=== PATIENT | female | born 2000 | race Caucasian/White ===

== ENCOUNTER 2020-01-01 08:38 | Inpatient (IN) | payer MEDICAID ==
[2020-01-01] MEDS ORDERED: Ampicillin 2 GM in Sodium Chloride 0.9% 100 ML IV ONE (09:02)
[2020-01-01] MEDS ORDERED: Acetaminophen 325 MG Tab PO PRN (09:02)
[2020-01-01] MEDS ORDERED: Nalbuphine 10 MG/ML Syringe IVPUSH PRN (09:02)
[2020-01-01] MEDS ORDERED: Sodium Chloride 0.9% 10 ML Syringe FLUSH PRN (09:02)
[2020-01-01] MEDS: Lactated Ringers 1,000 ML IV SCH ×3 (09:15→11:58)
[2020-01-01] MEDS ORDERED: Oxytocin/Lactated Ringers 10 UNIT/1,000 ML BAG IV SCH ×2 (09:15→12:48)
[2020-01-01] MEDS ORDERED: fentaNYL 100 MCG/2 ML SDV ONE (09:20)
[2020-01-01] MEDS ORDERED: ePHEDrine 50 MG/ML SDV IVPUSH PRN (09:27)
[2020-01-01] MEDS ORDERED: Bupivacaine/fentaNYL/NS 100 ML Bag EPIDUR PRN (09:27)
[2020-01-01] MEDS ORDERED: fentaNYL 100 MCG/2 ML SDV EPIDUR PRN (09:27)
[2020-01-01] MEDS ORDERED: diphenhydrAMINE 50 MG/ML SDV IVPUSH PRN (09:27)
--- NOTE | 2020-01-01 09:50 | PCM.PREANE ---
Preanesthetic Assessment - Procedure Proposed Procedure: elizabeth - Anesthesia/Transfusion/Family Hx Anesthesia History: No Prior Anesthesia Family History of Anesthesia Reaction: No Transfusion History: No Prior Transfusion(s) - Review of Systems General: No Symptoms Pulmonary: No Symptoms Cardiovascular: No Symptoms Gastrointestinal: No Symptoms Neurological: No Symptoms Other: Reports: None - Physical Assessment Vital Signs: 98.3 130/91 99% 98.3 77 Height: 5 ft 7 in Weight: 83.007 kg ASA Class: 2 Mental Status: Alert & Oriented x3 Airway Class: Mallampati = 1 Dentition: Reports: Normal Dentition Thyro-Mental Finger Breadths: 3 Mouth Opening Finger Breadths: 3 ROM/Head Extension: Full Lungs: Clear to Auscultation, Normal Respiratory Effort Cardiovascular: Regular Rate, Regular Rhythm - Lab Values: Laboratory Last Values WBC 12.34 K/mm3 (3.98-10.04) H 01/01/20 09:14 RBC 4.13 M/mm3 (3.98-5.22) 01/01/20 09:14 Hgb 14.4 gm/dl (11.2-15.7) 01/01/20 09:14 Hct 41.9 % (34.1-44.9) 01/01/20 09:14 MCV 101.5 fl (79.4-94.8) H 01/01/20 09:14 MCH 34.9 pg (25.6-32.2) H 01/01/20 09:14 MCHC 34.4 g/dl (32.2-35.5) 01/01/20 09:14 RDW Std Deviation 44.6 fL (36.4-46.3) 01/01/20 09:14 Plt Count 248 K/mm3 (182-369) 01/01/20 09:14 MPV 9.7 fl (9.4-12.3) 01/01/20 09:14 Neut % (Auto) 70.0 % (34.0-71.1) 01/01/20 09:14 Lymph % (Auto) 19.3 % (19.3-51.7) 01/01/20 09:14 [place] % (Auto) 8.8 % (4.7-12.5) 01/01/20 09:14 Eos % (Auto) 1.1 (0.7-5.8) 01/01/20 09:14 Baso % (Auto) 0.2 % (0.1-1.2) 01/01/20 09:14 Neut # (Auto) 8.66 K/mm3 (1.56-6.13) H 01/01/20 09:14 Lymph # (Auto) 2.38 K/mm3 (1.18-3.74) 01/01/20 09:14 [place] # (Auto) 1.08 K/mm3 (0.24-0.36) H 01/01/20 09:14 Eos # (Auto) 0.13 K/mm3 (0.04-0.36) 01/01/20 09:14 Baso # (Auto) 0.02 K/mm3 (0.01-0.08) 01/01/20 09:14 Membrane Rupture Positive H 01/01/20 08:40 - Allergies Allergies/Adverse Reactions: Allergies Allergy/AdvReac Type Severity Reaction Status Date / Time latex Allergy Rash Verified 01/01/20 08:47 - Blood Blood Available: No - Acknowledgements Anesthesia Type Planned: Epidural Pt an Appropriate Candidate for the Planned Anesthesia: Yes Alternatives and Risks of Anesthesia Discussed w Pt/Guardian: Yes Pt/Guardian Understands and Agrees with Anesthesia Plan: Yes PreAnesthesia Questionnaire Cardiovascular History: Reports: None Respiratory History: Reports: Asthma Gastrointestinal History: Reports: GERD : 2 Para: 1 Musculoskeletal History: Reports: None Oncologic (Cancer) History: Reports: None - History Comment History Comment: vits. zantac - SUBSTANCE USE Smoking Status *Q: Former Smoker Tobacco Use Within Last Twelve Months: No Second Hand Smoke Exposure: No Days Per Week of Alcohol Use: 0 Recreational Drug Use History: No - CURRENT (IN HOUSE) MEDS Current Meds: Current Medications Acetaminophen (Tylenol) 650 mg PO Q6H PRN PRN Reason: Pain (Mild 1-3) and fever Diphenhydramine HCl (Benadryl) 25 mg IVPUSH Q6H PRN PRN Reason: pruritis Ephedrine Sulfate (Ephedrine Sulfate) 5 mg IVPUSH ASDIRECTED PRN PRN Reason: Hypotension Fentanyl (Sublimaze) 100 mcg EPIDUR Q3H PRN PRN Reason: Pain Fentanyl/Bupivacaine HCl (Fentanyl/Bupivacaine/Ns 2 Mcg-0.125% 100 Ml) 100 ml EPIDUR ASDIRECTED PRN PRN Reason: Pain Ampicillin Sodium 1 gm/ Sodium (Chloride) 100 mls @ 200 mls/hr IV Q4H WALE Lactated Ringer's (Ringers, Lactated) 1,000 mls @ 100 mls/hr IV ASDIRECTED WALE Oxytocin/Lactated Ringer's (Pitocin In Lr 10 Units/1,000 Ml) 10 unit in 1,000 mls @ 100 mls/hr IV .CONTINUOUS WALE Nalbuphine HCl (Nubain) 10 mg IVPUSH Q2H PRN PRN Reason: Pain Sodium Chloride (Saline Flush) 10 ml FLUSH ASDIRECTED PRN PRN Reason: Keep Vein Open Discontinued Medications Fentanyl (Sublimaze) Confirm Administered Dose 100 mcg .ROUTE .[facility] ONE Stop: 01/01/20 09:21 Ampicillin Sodium 2 gm/ Sodium (Chloride) 100 mls @ 200 mls/hr IV ONETIME ONE Stop: 01/01/20 09:31
--- NOTE | 2020-01-01 10:16 | PCM.LDHP ---
L&D History of Present Illness - General Date of Service: 01/01/20 Admit Problem/Dx: Patient Status Order with Admit Dx/Problem 01/01/20 09:02 Patient Status [ADT] Routine Admission Diagnosis/Problem Admission Diagnosis/Problem 39 weeks gestation of Source of Information: Patient History Limitations: Reports: No Limitations - History of Present Illness Introduction:: Jazlyn Crump is a 19-year-old -0-2-1 at 39 weeks 1 day (JAKE 01/07/2020) by an 11-week ultrasound who presents for evaluation of possible rupture membranes. She reports that at around 640 this morning she started to feel ongoing leaking of fluid vaginally. Shortly after this occurred she started to have contractions that were about every 2 to 2.5 minutes apart. She is uncertain of how long they are lasting. She reports that the fluid was clear but while she was on labor and delivery she did have some bloody discharge when she went to the bathroom. She denies any significant amount of bright red bleeding. She denies any other abnormal discharge. She reports good movement. Timing/Duration: Reports: sudden onset (around 6:40 AM), constant/continuous ( contractions every 2-2.5 minutes) Location, : Reports: Abdomen, Lower back, Pelvic Quality: Reports: Pressure, Throbbing Severity: Severe Associated Symptoms: Reports: vaginal bleeding, vaginal fluid, mild amount. Denies: vaginal discharge Present Illness Comments:: Jazlyn Crump is a 19-year-old -0-2-1 at 39 weeks 1 day (JAKE 01/07/2020) by an 11-week ultrasound who presents with contractions and suspected rupture membranes. Patient reports that she had routine care with a physician in [place] prior to moving to [place]. She started having care with Dr. Ferrari at 35 weeks gestational age. She denies any problems with this . She received flu and Tdap vaccine on 12/03/2019. She reports a history of drug use but none during this . 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 G1: SAB G2: SAB G3: 05/07/2016, , male infant, 37 weeks gestational age G4: Current labs Blood type: A+ Antibody screen: Negative First trimester hematocrit/hemoglobin: 38.7%/14.0 on 06/14/2019 Platelets: 272 on 06/14/2019 Rubella status: Immune Hepatitis B surface antigen: Negative RPR: Negative HIV: Negative Gonorrhea: Negative Chlamydia: Negative One hour glucose tolerance test: 85 Second trimester hemoglobin: 13.4 on 09/30/2019 Platelets: 259 on 09/30/2019 GBS status: Positive on swab on 12/17/2019 - Related Data Allergies/Adverse Reactions: Allergies Allergy/AdvReac Type Severity Reaction Status Date / Time latex Allergy Rash Verified 01/01/20 08:47 Past Medical History Cardiovascular History: Reports: None Respiratory History: Reports: Asthma Gastrointestinal History: Reports: GERD CUSTOMER MARKETING MANAGER History: Reports: : 4 Para: 1 Musculoskeletal History: Reports: None Oncologic (Cancer) History: Reports: None - History Comment History Comment: vits. zantac Social & Family History - Tobacco Use Smoking Status *Q: Former Smoker Second Hand Smoke Exposure: No - Tobacco Core Measures Tobacco Use/Smoking Within Last 30 Days: No Smokeless Tobacco Use in Last 30 Days: No - Alcohol Use Days Per Week of Alcohol Use: 0 - Recreational Drug Use Recreational Drug Use: No - Living Situation & Occupation Living situation: Reports: Single, with Family H&P Review of Systems - Review of Systems: Review Of Systems: See Below General: Denies: Fever, Chills, Malaise, Weakness, Fatigue HEENT: Denies: Headaches, Rhinitis, Post Nasal Drip, Sinus Congestion, Sore Throat, Visual Changes Pulmonary: Denies: Shortness of Breath, Wheezing, Pleuritic Chest Pain, Cough Cardiovascular: Denies: Chest Pain, Palpitations, Dyspnea on Exertion, Orthopnea Gastrointestinal: Reports: Constipation. Denies: Abdominal Pain, Diarrhea, Nausea, Vomiting Genitourinary: Denies: Dysuria, Frequency, Burning, Pain, Urgency Musculoskeletal: Reports: Back Pain (and hip pain) Skin: Denies: Rash, Lesions Psychiatric: Reports: Anxiety. Denies: Depression L&D Exam - Exam Exam: See Below - Vital Signs Weight: 83.007 kg - OB Specific Contraction Duration (sec): 45-60 Contraction Frequency (min): 2-4 Contraction Intensity: Strong Movement: Active Heart Tones: Present Heart Tones per Min: 130 (+15 x 15 accelerations, intermittent variable decelerations) Heart Rate (FHR) Variability: Moderate (6-25 bmp) Presentation: Vertex Estimated Weight: 6.5-7 pounds by Miguel - Gray Score Gray Score Cervix Position: Anterior Gray Score Consistency: Soft Gray Score Effacement: >80% (90%) Gray Score Dilation: > 5 cm (5 cm) Gray Score 's Station: -2 Gray Score Total: 11 - Exam General: Alert, Oriented HEENT: Conjunctiva Clear, EOMI Neck: Supple, Trachea Midline Lungs: Clear to Auscultation, Normal Respiratory Effort Cardiovascular: Regular Rate, Regular Rhythm GI/Abdominal Exam: Soft, Non-Tender, No Distention, Other (gravid). No: Guarding, Rigid, Rebound Genitourinary: Normal external exam Skin: Warm, Dry, Intact Psychiatric: Alert, Normal Affect, Normal Mood - Patient Data Lab Results Last 24 hrs: Laboratory Results - last 24 hr 01/01/20 01/01/20 Range/Units 08:40 09:14 WBC 12.34 H (3.98-10.04) K/mm3 RBC 4.13 (3.98-5.22) M/mm3 Hgb 14.4 (11.2-15.7) gm/dl Hct 41.9 (34.1-44.9) % MCV 101.5 H (79.4-94.8) fl MCH 34.9 H (25.6-32.2) pg MCHC 34.4 (32.2-35.5) g/dl RDW Std Deviation 44.6 (36.4-46.3) fL Plt Count 248 (182-369) K/mm3 MPV 9.7 (9.4-12.3) fl Neut % (Auto) 70.0 (34.0-71.1) % Lymph % (Auto) 19.3 (19.3-51.7) % [facility] % (Auto) 8.8 (4.7-12.5) % Eos % (Auto) 1.1 (0.7-5.8) Baso % (Auto) 0.2 (0.1-1.2) % Neut # (Auto) 8.66 H (1.56-6.13) K/mm3 Lymph # (Auto) 2.38 (1.18-3.74) K/mm3 [facility] # (Auto) 1.08 H (0.24-0.36) K/mm3 Eos # (Auto) 0.13 (0.04-0.36) K/mm3 Baso # (Auto) 0.02 (0.01-0.08) K/mm3 Membrane Rupture Positive H Result Diagrams: 01/01/20 09:14 - Problem List (1) 39 weeks gestation of SNOMED Code(s): 25140498 ICD Code: Z3A.39 - 39 WEEKS GESTATION OF Status: Acute Current Visit: Yes (2) GBS (group B Streptococcus carrier), +RV culture, currently SNOMED Code(s): 7660596214184, 719362149, 2380470345454 ICD Code: O99.820 - STREPTOCOCCUS B CARRIER STATE COMPLICATING Status: Acute Current Visit: Yes (3) Asthma SNOMED Code(s): 217448462 ICD Code: J45.909 - UNSPECIFIED ASTHMA, UNCOMPLICATED Status: Acute Current Visit: Yes (4) History of depression SNOMED Code(s): 905250750 ICD Code: Z86.59 - PERSONAL HISTORY OF OTHER MENTAL AND BEHAVIORAL DISORDERS Status: Acute Current Visit: Yes Problem List Initiated/Reviewed/Updated: Yes Orders Last 24hrs: Active Orders 24 hr Category Date Time Status Patient Status [ADT] Routine ADT 01/01/20 09:02 Active Activity as Tolerated [RC] PFP Care 01/01/20 09:02 Active Communication Order [RC] ASDIRECTED Care 01/01/20 09:02 Active Heart Tones [RC] ASDIRECTED Care 01/01/20 09:03 Active Non Stress Test [RC] PER UNIT ROUTINE Care 01/01/20 09:02 Active Notify Provider Vital Signs [RC] PRN Care 01/01/20 09:04 Active Notify Provider [RC] ASDIRECTED Care 01/01/20 09:27 Active Notify Provider [RC] PFP Care 01/01/20 09:02 Active Notify Provider [RC] PRN Care 01/01/20 09:02 Active Peripheral IV Care [RC] . DIRECTED Care 01/01/20 09:03 Active Pump Management, Intrathecal [RC] ASDIRECTED Care 01/01/20 09:04 Active Vital Signs [RC] PER UNIT ROUTINE Care 01/01/20 09:02 Active Regular Diet [DIET] Diet 01/01/20 Breakfast Active RAPID PLASMA REAGIN,RPR [CHEM] Routine Lab 01/01/20 09:14 Received Acetaminophen [Tylenol] Med 01/01/20 09:02 Active 650 mg PO Q6H PRN Ampicillin 1 gm Med 01/01/20 13:00 Active Sodium Chloride 0.9% [Normal Saline] 100 ml IV Q4H Bupivacaine/fentaNYL/NS [fentaNYL/Bupivacaine/NS 2 MCG- Med 01/01/20 09:27 Active 0.125% 100 ML] 100 ml EPIDUR ASDIRECTED PRN Lactated Ringers [Ringers, Lactated] 1,000 ml Med 01/01/20 09:15 Active IV ASDIRECTED Nalbuphine [Nubain] Med 01/01/20 09:02 Active 10 mg IVPUSH Q2H PRN Oxytocin/Lactated Ringers [Pitocin in LR 10 Units/1,000 Med 01/01/20 09:15 Active ML] 10 unit in 1,000 ml IV .CONTINUOUS Sodium Chloride 0.9% [Saline Flush] Med 01/01/20 09:02 Active 10 ml FLUSH ASDIRECTED PRN diphenhydrAMINE [Benadryl] Med 01/01/20 09:27 Active 25 mg IVPUSH Q6H PRN ePHEDrine [ePHEDrine sulfate] Med 01/01/20 09:27 Active 5 mg IVPUSH ASDIRECTED PRN fentaNYL [Sublimaze] Med 01/01/20 09:27 Active 100 mcg EPIDUR Q3H PRN Electronic Heart Tones Ext w TOCO [WOMSER] Oth 01/01/20 09:02 Ordered Routine Electronic Heart Tones Internal [WOMSER] Per Unit Oth 01/01/20 09:02 Ordered Routine Peripheral IV Insertion Adult [OM.PC] Routine Oth 01/01/20 09:02 Ordered Resuscitation Status Routine Resus Stat 01/01/20 09:02 Ordered Medication Orders Acetaminophen (Tylenol) 650 mg PO Q6H PRN PRN Reason: Pain (Mild 1-3) and fever Diphenhydramine HCl (Benadryl) 25 mg IVPUSH Q6H PRN PRN Reason: pruritis Ephedrine Sulfate (Ephedrine Sulfate) 5 mg IVPUSH ASDIRECTED PRN PRN Reason: Hypotension Fentanyl (Sublimaze) 100 mcg EPIDUR Q3H PRN PRN Reason: Pain Fentanyl/Bupivacaine HCl (Fentanyl/Bupivacaine/Ns 2 Mcg-0.125% 100 Ml) 100 ml EPIDUR ASDIRECTED PRN PRN Reason: Pain Ampicillin Sodium 1 gm/ Sodium (Chloride) 100 mls @ 200 mls/hr IV Q4H WALE Lactated Ringer's (Ringers, Lactated) 1,000 mls @ 100 mls/hr IV ASDIRECTED WALE Oxytocin/Lactated Ringer's (Pitocin In Lr 10 Units/1,000 Ml) 10 unit in 1,000 mls @ 100 mls/hr IV .CONTINUOUS WALE Nalbuphine HCl (Nubain) 10 mg IVPUSH Q2H PRN PRN Reason: Pain Sodium Chloride (Saline Flush) 10 ml FLUSH ASDIRECTED PRN PRN Reason: Keep Vein Open Assessment/Plan Comment:: Refer to observation for spontaneous rupture of membranes Start Pitocin for augmentation of labor if she has spacing out of her contractions Continuous monitoring Place IV and have Lactated Ringer's at 125 ml/hr May have small amounts of regular diet Activity as tolerated Epidural placed and providing good relief at this time Plans to breast-feed after delivery Start on ampicillin 2 g now and have 1 g every 4 hours after for GBS prophylaxis Anticipate vaginal delivery unless otherwise indicated Stuart Nelson MD 10:23 AM 01/01/2020
[2020-01-01] MEDS ORDERED: Benzocaine/Menthol 20%-0.5% Spray 56 GM Canister TOP PRN (12:48)
[2020-01-01] MEDS ORDERED: Hydrocortisone Acetate 25 MG Supp RECTAL PRN (12:48)
[2020-01-01] MEDS ORDERED: Magnesium Hydroxide 400 MG/5 ML Susp 30 ML Cup PO PRN (12:48)
--- NOTE | 2020-01-01 12:53 | PCM.DEL ---
L & D Note - General Info Date of Service: 01/01/20 Mother's Due Date: 01/07/20 - Delivery Note Labor: Spontaneous Delivery Outcome: Livebirth Infant Delivery Method: Spontaneous Vaginal Delivery-Single Presentation: Right Occiput Posterior (ROP) Nuchal Cord: Present (x2 and not reduced) Anesthesia Type: Epidural Amniotic Fluid Description: Clear Episiotomy Type: None Laceration: 1st Degree (bilateral labial lacerations, hemostatic and not repaired) Placenta: Intact, Spontaneous Cord: 3 Vessels Estimated Blood Loss: 250 Resuscitation Needed: No [place]: Bulb Syringe, Cathether, Stimulated, Warmed, [place] Used Provider: Stuart Nelson Score 1 min: 7 Score 5 min: 9 Second Stage Interventions: Reports: Pushing Effectively, Pushing, Stirrups/Leg Supports Delivery Comments (Free Text/Narrative):: Stage I: Jazlyn Crump was admitted for labor with spontaneous rupture of membranes. On admission her cervix was dilated to 5 cm. She was GBS positive and was started on ampicillin for GBS prophylaxis. She received 1 total dose prior to delivery. She was given an epidural for anesthesia. She was having regular contractions and progressed to complete and pushing. Stage II: On 01/01/2020 she had a normal vaginal delivery of a live female at 12:22. Apgars of 7 & 9. Weight of 2770 g (6 lbs 1.7 oz). Length of 18 inches. There was a nuchal cord x2 that was not reduced prior to delivery. was delivered in ROP position. The cord was doubly clamped and cut by myself. was placed on mother's abdomen. Stage III: She had a spontaneous delivery of an intact placenta in [place] presentation. Three vessel cord. She was given pitocin and fundal massage. She had bilateral labial lacerations that were hemostatic and not repaired. Mom and baby were stable to recovery. EBL of 250 mL. Stuart Nelson MD 12:50 PM 01/01/2020 - General Info Date of Service: 01/01/20 - Patient Data Vitals - Most Recent: Last Vital Signs Temp 36.8 C 01/01/20 09:02 Pulse 77 01/01/20 09:02 Resp 18 01/01/20 09:02 BP 130/91 H 01/01/20 09:02 Pulse Ox 99 01/01/20 09:02 Weight - Most Recent: 83.915 kg Lab Results Last 24 Hours: Laboratory Results - last 24 hr 01/01/20 01/01/20 Range/Units 08:40 09:14 WBC 12.34 H (3.98-10.04) K/mm3 RBC 4.13 (3.98-5.22) M/mm3 Hgb 14.4 (11.2-15.7) gm/dl Hct 41.9 (34.1-44.9) % MCV 101.5 H (79.4-94.8) fl MCH 34.9 H (25.6-32.2) pg MCHC 34.4 (32.2-35.5) g/dl RDW Std Deviation 44.6 (36.4-46.3) fL Plt Count 248 (182-369) K/mm3 MPV 9.7 (9.4-12.3) fl Neut % (Auto) 70.0 (34.0-71.1) % Lymph % (Auto) 19.3 (19.3-51.7) % [place] % (Auto) 8.8 (4.7-12.5) % Eos % (Auto) 1.1 (0.7-5.8) Baso % (Auto) 0.2 (0.1-1.2) % Neut # (Auto) 8.66 H (1.56-6.13) K/mm3 Lymph # (Auto) 2.38 (1.18-3.74) K/mm3 [place] # (Auto) 1.08 H (0.24-0.36) K/mm3 Eos # (Auto) 0.13 (0.04-0.36) K/mm3 Baso # (Auto) 0.02 (0.01-0.08) K/mm3 Membrane Rupture Positive H Med Orders - Current: Current Medications Acetaminophen (Tylenol) 650 mg PO Q6H PRN PRN Reason: mild pain or fever Benzocaine/Menthol (Dermoplast Pain Relief [place]) 0 gm TOP ASDIRECTED PRN PRN Reason: Perineal Comfort Measure Docusate Sodium (Colace) 100 mg PO BID PRN PRN Reason: Constipation Hydrocortisone Acetate (Anucort-Hc) 25 mg RECTAL BID PRN PRN Reason: Hemorrhoid pain Oxytocin/Lactated Ringer's (Pitocin In Lr 10 Units/1,000 Ml) 10 unit in 1,000 mls @ 100 mls/hr IV TITRATE WALE; Protocol Ibuprofen (Motrin) 600 mg PO Q6H PRN PRN Reason: Mild pain or fever Magnesium Hydroxide (Milk Of Magnesia) 30 ml PO BEDTIME PRN PRN Reason: Constipation Prenat Multivit/[place]/Iron/Folic Ac ( Plus Iron) 1 each PO DAILY ON LICENSE OF [facility] Rafaela Chung (Tucks) 1 pad TOP ASDIRECTED PRN PRN Reason: Perineal Comfort Measure Discontinued Medications Acetaminophen (Tylenol) 650 mg PO Q6H PRN PRN Reason: Pain (Mild 1-3) and fever Diphenhydramine HCl (Benadryl) 25 mg IVPUSH Q6H PRN PRN Reason: pruritis Ephedrine Sulfate (Ephedrine Sulfate) 5 mg IVPUSH ASDIRECTED PRN PRN Reason: Hypotension Fentanyl (Sublimaze) Confirm Administered Dose 100 mcg .ROUTE .[facility] ONE Stop: 01/01/20 09:21 Last Admin: 01/01/20 11:58 Dose: 100 mcg Fentanyl (Sublimaze) 100 mcg EPIDUR Q3H PRN PRN Reason: Pain Fentanyl/Bupivacaine HCl (Fentanyl/Bupivacaine/Ns 2 Mcg-0.125% 100 Ml) 100 ml EPIDUR ASDIRECTED PRN PRN Reason: Pain Last Admin: 01/01/20 09:45 Dose: 100 ml Ampicillin Sodium 2 gm/ Sodium (Chloride) 100 mls @ 200 mls/hr IV ONETIME ONE Stop: 01/01/20 09:31 Last Admin: 01/01/20 09:15 Dose: 200 mls/hr Ampicillin Sodium 1 gm/ Sodium (Chloride) 100 mls @ 200 mls/hr IV Q4H WALE Lactated Ringer's (Ringers, Lactated) 1,000 mls @ 100 mls/hr IV ASDIRECTED WALE Last Admin: 01/01/20 11:58 Dose: 999 mls/hr Oxytocin/Lactated Ringer's (Pitocin In Lr 10 Units/1,000 Ml) 10 unit in 1,000 mls @ 100 mls/hr IV .CONTINUOUS WALE Last Admin: 01/01/20 12:02 Dose: 100 mls/hr Nalbuphine HCl (Nubain) 10 mg IVPUSH Q2H PRN PRN Reason: Pain Sodium Chloride (Saline Flush) 10 ml FLUSH ASDIRECTED PRN PRN Reason: Keep Vein Open - Problem List & Annotations (1) 39 weeks gestation of SNOMED Code(s): 61156146 Code(s): Z3A.39 - 39 WEEKS GESTATION OF Status: Acute Current Visit: Yes (2) GBS (group B Streptococcus carrier), +RV culture, currently SNOMED Code(s): 2596663890440, 004219869, 5336910145822 Code(s): O99.820 - STREPTOCOCCUS B CARRIER STATE COMPLICATING Status: Acute Current Visit: Yes (3) Asthma SNOMED Code(s): 444766108 Code(s): J45.909 - UNSPECIFIED ASTHMA, UNCOMPLICATED Status: Acute Current Visit: Yes (4) History of depression SNOMED Code(s): 968820064 Code(s): Z86.59 - PERSONAL HISTORY OF OTHER MENTAL AND BEHAVIORAL DISORDERS Status: Acute Current Visit: Yes (5) Vaginal delivery SNOMED Code(s): 947508699 Code(s): O80 - ENCOUNTER FOR FULL-TERM UNCOMPLICATED DELIVERY Status: Acute Current Visit: Yes (6) Obstetric labial laceration, delivered, current hospitalization SNOMED Code(s): 383227561, 017496779, 410627467 Code(s): O70.0 - FIRST DEGREE PERINEAL LACERATION DURING DELIVERY Status: Acute Current Visit: Yes - Problem List Review Problem List Initiated/Reviewed/Updated: Yes - My Orders Last 24 Hours: My Active Orders 01/01/20 09:02 Resuscitation Status Routine 01/01/20 09:03 Heart Tones [RC] ASDIRECTED 01/01/20 09:14 RAPID PLASMA REAGIN,RPR [CHEM] Routine 01/01/20 12:48 Patient Status [ADT] Routine Activity as Tolerated [RC] PER UNIT ROUTINE May Shower [RC] ASDIRECTED Notify Provider Vital Signs [RC] ASDIRECTED Vital Signs [RC] ASDIRECTED Acetaminophen [Tylenol] 650 mg PO Q6H PRN Benzocaine/Menthol [Dermoplast Pain Relief [place]] See Dose Instructions TOP ASDIRECTED PRN Docusate Sodium [Colace] 100 mg PO BID PRN Hydrocortisone Acetate [Anucort-HC] 25 mg RECTAL BID PRN Ibuprofen [Motrin] 600 mg PO Q6H PRN Magnesium Hydroxide [Milk of Magnesia] 30 ml PO BEDTIME PRN Oxytocin/Lactated Ringers [Pitocin in LR 10 Units/1,000 ML] 10 unit in 1,000 ml IV TITRATE witch Nikolas [Tucks] 1 pad TOP ASDIRECTED PRN Assess Lochia [WOMSER] Per Unit Routine Assess Uterine Involution [WOMSER] Per Unit Routine Breast Pump [WOMSER] Per Unit Routine Heat Therapy [OM.PC] PRN Ice Therapy [OM.PC] Per Unit Routine Medication Administration Instruction [OM.PC] Routine Perineal Care [OM.PC] Per Unit Routine Peripheral IV Discontinue [OM.PC] Routine Sitz Bath [OM.PC] Per Unit Routine 01/01/20 Lunch Regular Diet [DIET] 01/02/20 09:00 Vit with Ca/FA/Iron [ Plus Iron] 1 each PO DAILY 01/02/20 12:48 Heat Therapy [OM.PC] PRN - Plan Plan:: Admit to inpatient following normal spontaneous vaginal delivery Continue Pitocin per unit protocol following delivery of placenta and lactated Ringer's until tolerating regular diet Regular diet Vitals per unit routine Ibuprofen and Tylenol for pain control Assist with breast-feeding as needed Continue to monitor lochia Anticipate discharge home on day #2 Stuart Nelson MD 12:50 PM 01/01/2020
[2020-01-01] MEDS ORDERED: Ampicillin 1 GM in Sodium Chloride 0.9% 100 ML IV SCH (13:00)
[2020-01-01] MEDS ORDERED: Bupivacaine 0.25% 10 ML SDV ONE (14:00)
[2020-01-01] MEDS: Witch Hazel Medicated Pads 40/Jar TOP PRN (14:42)
[2020-01-01] MEDS: Ibuprofen 600 MG Tab PO PRN (18:34)
[2020-01-01] MEDS: Acetaminophen 325 MG Tab PO PRN (21:12)
[2020-01-01] MEDS: Docusate Sodium 100 MG Cap PO PRN (21:14)
[2020-01-02] MEDS: Ibuprofen 600 MG Tab PO PRN ×3 (00:47→18:10)
[2020-01-02] MEDS ORDERED: Prenatal Multivitamin with Calcium/Folic Acid/Iron Tab PO SCH (09:00)
--- NOTE | 2020-01-02 09:46 | PCM.SN.2 ---
- Free Text/Narrative Note: Post Progress Note PPD #1 Subjective: Doing well overall. Ambulating without difficulty. Lochia minimal. Voiding without difficulty. Tolerating regular diet without nausea or vomiting. Pain overall controlled with oral medications. Breast-feeding with formula supplementation as needed with minimal difficulty. Objective: Vitals: Vital Signs - 24 hr 01/01/20 01/01/20 01/01/20 15:11 15:48 21:01 Temperature 37.4 C 37.6 C 37.0 C Pulse, 113 H 86 82 Peripheral Respiratory 16 16 Rate Blood Pressure 128/73 127/67 O2 Sat by Pulse 99 98 98 Oximetry 01/02/20 01/02/20 05:57 09:09 Temperature 36.6 C 37.0 C Pulse, 64 87 Peripheral Respiratory 15 15 Rate Blood Pressure 129/73 129/67 O2 Sat by Pulse 97 98 Oximetry Physical Exam General: Alert and oriented, no acute distress Lungs: Clear to auscultation bilaterally Heart: Regular rate and rhythm Abdomen: Soft, minimal appropriate tenderness, non-distended, fundus midline, nontender, and 1 fingerbreadth below the umbilicus Extremities: No edema ASSESSMENT: 19-year-old female -0-2-2 s/p normal vaginal delivery PPD #1, complicated by GBS positive and received 1 dose of ampicillin prior to delivery, asthma, late transfer of care and history of drug use prior to and depression PLAN: Doing well Breast-feeding with formula supplementation as needed with minimal difficulty. Assist as needed Lochia minimal. Continue to monitor for appropriate lochia. Continue routine care Anticipate discharge home tomorrow Stuart Nelson MD 9:45 AM 01/02/2020
[2020-01-02] MEDS: Witch Hazel Medicated Pads 40/Jar TOP PRN (19:36)
[2020-01-02] MEDS: Docusate Sodium 100 MG Cap PO PRN (19:36)
[2020-01-02] MEDS: Acetaminophen 325 MG Tab PO PRN (22:59)
[2020-01-03] MEDS: Ibuprofen 600 MG Tab PO PRN (07:19)
--- NOTE | 2020-01-03 08:50 | PCM.SN.2 ---
- Free Text/Narrative Note: Post Progress Note PPD #2 Subjective: Doing well overall. Ambulating without difficulty. Lochia minimal. Voiding without difficulty. Reports that she is passing flatus but is having some mild constipation. Took her Colace that was ordered last evening but has still not had a bowel movement. Tolerating regular diet without nausea or vomiting. Pain overall controlled with oral medications. Reports that the pain is improving this morning. Breast-feeding and pumping breastmilk with small amounts of formula supplementation as needed with minimal difficulty. Objective: Vitals: Vital Signs - 24 hr 01/02/20 01/02/20 01/02/20 09:09 15:46 19:38 Temperature 37.0 C 37.2 C 37.3 C Pulse, 87 78 78 Peripheral Respiratory 15 14 15 Rate Blood Pressure 129/67 119/88 130/73 O2 Sat by Pulse 98 97 97 Oximetry 01/03/20 02:26 Temperature 37.0 C Pulse, 71 Peripheral Respiratory 15 Rate Blood Pressure 111/87 O2 Sat by Pulse 97 Oximetry Physical Exam General: Alert and oriented, no acute distress Lungs: Clear to auscultation bilaterally Heart: Regular rate and rhythm Abdomen: Soft, minimal appropriate tenderness, non-distended, fundus midline, nontender, and 1 fingerbreadth below the umbilicus Extremities: No edema ASSESSMENT: 19-year-old female -0-2-2 s/p normal vaginal delivery PPD #2, complicated by GBS positive and received 1 dose of ampicillin prior to delivery, asthma, late transfer of care and history of drug use prior to and depression PLAN: Doing well Breast-feeding and pumping breastmilk with small amounts of formula supplementation as needed with minimal difficulty. Assist as needed Lochia minimal. Continue to monitor for appropriate lochia. Continue routine care Discharge home today Stuart Nelson MD 8:48 AM 01/03/2020
--- NOTE | 2020-01-03 08:53 | PCM.DCSUM1 ---
Discharge Summary - Hospital Course Free Text/Narrative:: - General Info Date of Service: 01/01/20 Mother's Due Date: 01/07/20 - Delivery Note Labor: Spontaneous Delivery Outcome: Livebirth Infant Delivery Method: Spontaneous Vaginal Delivery-Single Presentation: Right Occiput Posterior (ROP) Nuchal Cord: Present (x2 and not reduced) Anesthesia Type: Epidural Amniotic Fluid Description: Clear Episiotomy Type: None Laceration: 1st Degree (bilateral labial lacerations, hemostatic and not repaired) Placenta: Intact, Spontaneous Cord: 3 Vessels Estimated Blood Loss: 250 Resuscitation Needed: No Mcroberts: Bulb Syringe, Cathether, Stimulated, Warmed, Milton Used Provider: Stuart Nelson Score 1 min: 7 Score 5 min: 9 Second Stage Interventions: Reports: Pushing Effectively, Pushing, Stirrups/Leg Supports Delivery Comments (Free Text/Narrative):: Stage I: Jazlyn Crump was admitted for labor with spontaneous rupture of membranes. On admission her cervix was dilated to 5 cm. She was GBS positive and was started on ampicillin for GBS prophylaxis. She received 1 total dose prior to delivery. She was given an epidural for anesthesia. She was having regular contractions and progressed to complete and pushing. Stage II: On 01/01/2020 she had a normal vaginal delivery of a live female infant at 12:22. Apgars of 7 & 9. Weight of 2770 g (6 lbs 1.7 oz). Length of 18 inches. There was a nuchal cord x2 that was not reduced prior to delivery. was delivered in ROP position. The cord was doubly clamped and cut by myself. was placed on mother's abdomen. Stage III: She had a spontaneous delivery of an intact placenta in Wood presentation. Three vessel cord. She was given pitocin and fundal massage. She had bilateral labial lacerations that were hemostatic and not repaired. Mom and baby were stable to recovery. EBL of 250 mL. HPI Initial Comments: - General Info Date of Service: 01/01/20 Mother's Due Date: 01/07/20 - Delivery Note Labor: Spontaneous Delivery Outcome: Livebirth Delivery Method: Spontaneous Vaginal Delivery-Single Presentation: Right Occiput Posterior (ROP) Nuchal Cord: Present (x2 and not reduced) Anesthesia Type: Epidural Amniotic Fluid Description: Clear Episiotomy Type: None Laceration: 1st Degree (bilateral labial lacerations, hemostatic and not repaired) Placenta: Intact, Spontaneous Cord: 3 Vessels Estimated Blood Loss: 250 Resuscitation Needed: No : Bulb Syringe, Cathether, Stimulated, Warmed, Milton Used Provider: Stuart Nelson Score 1 min: 7 Score 5 min: 9 Second Stage Interventions: Reports: Pushing Effectively, Pushing, Stirrups/Leg Supports Delivery Comments (Free Text/Narrative):: Stage I: Jazlyn Crump was admitted for labor with spontaneous rupture of membranes. On admission her cervix was dilated to 5 cm. She was GBS positive and was started on ampicillin for GBS prophylaxis. She received 1 total dose prior to delivery. She was given an epidural for anesthesia. She was having regular contractions and progressed to complete and pushing. Stage II: On 01/01/2020 she had a normal vaginal delivery of a live female at 12:22. Apgars of 7 & 9. Weight of 2770 g (6 lbs 1.7 oz). Length of 18 inches. There was a nuchal cord x2 that was not reduced prior to delivery. Infant was delivered in ROP position. The cord was doubly clamped and cut by myself. Infant was placed on mother's abdomen. Stage III: She had a spontaneous delivery of an intact placenta in Wood presentation. Three vessel cord. She was given pitocin and fundal massage. She had bilateral labial lacerations that were hemostatic and not repaired. Mom and baby were stable to recovery. EBL of 250 mL. Brief History: - General Info. Date of Service: 01/01/20. Mother's Due Date: 01/07/20. - Delivery Note. Labor: Spontaneous. Delivery Outcome: Livebirth. Infant Delivery Method: Spontaneous Vaginal Delivery-Single. Presentation : Right Occiput Posterior (ROP). Nuchal Cord: Present (x2 and not reduced). Anesthesia Type: Epidural. Amniotic Fluid Description: Clear. Episiotomy Type : None. Laceration: 1st Degree (bilateral labial lacerations, hemostatic and not repaired). Placenta: Intact, Spontaneous. Cord: 3 Vessels. Estimated Blood Loss: 250. Resuscitation Needed: No. Mcroberts: Bulb Syringe, Cathether, Stimulated, Warmed, Milton Used. Provider: Stuart Nelson. Score 1 min: 7. Score 5 min: 9. Second Stage Interventions: Reports: Pushing Effectively, Pushing, Stirrups/Leg Supports. Delivery Comments (Free Text/Narrative):: Stage I: Jazlyn Crump was admitted for labor with spontaneous rupture of membranes. On admission her cervix was dilated to 5 cm. She was GBS positive and was started on ampicillin for GBS prophylaxis. She received 1 total dose prior to delivery. She was given an epidural for anesthesia. She was having regular contractions and progressed to complete and pushing. Stage II: On 01/01/2020 she had a normal vaginal delivery of a live female infant at 12:22. Apgars of 7 & 9. Weight of 2770 g (6 lbs 1.7 oz). Length of 18 inches. There was a nuchal cord x2 that was not reduced prior to delivery. Infant was delivered in ROP position. The cord was doubly clamped and cut by myself. was placed on mother's abdomen. Stage III: She had a spontaneous delivery of an intact placenta in Wood presentation. Three vessel cord. She was given pitocin and fundal massage. She had bilateral labial lacerations that were hemostatic and not repaired. Mom and baby were stable to recovery. EBL of 250 mL. Diagnosis: Stroke: No - Discharge Data Discharge Date: 01/03/20 Discharge Disposition: Home, Self-Care 01 Condition: Good - Referral to Home Health Primary Care Physician: Kim Celeste MD - Discharge Diagnosis/Problem(s) (1) 39 weeks gestation of SNOMED Code(s): 84385319 ICD Code: Z3A.39 - 39 WEEKS GESTATION OF Status: Acute Current Visit: Yes (2) GBS (group B Streptococcus carrier), +RV culture, currently SNOMED Code(s): 2403750352039, 477521962, 6413512418434 ICD Code: O99.820 - STREPTOCOCCUS B CARRIER STATE COMPLICATING Status: Acute Current Visit: Yes (3) Asthma SNOMED Code(s): 391341096 ICD Code: J45.909 - UNSPECIFIED ASTHMA, UNCOMPLICATED Status: Acute Current Visit: Yes (4) History of depression SNOMED Code(s): 852816346 ICD Code: Z86.59 - PERSONAL HISTORY OF OTHER MENTAL AND BEHAVIORAL DISORDERS Status: Acute Current Visit: Yes (5) Vaginal delivery SNOMED Code(s): 424190096 ICD Code: O80 - ENCOUNTER FOR FULL-TERM UNCOMPLICATED DELIVERY Status: Acute Current Visit: Yes (6) Obstetric labial laceration, delivered, current hospitalization SNOMED Code(s): 323860758, 990520750, 820731321 ICD Code: O70.0 - FIRST DEGREE PERINEAL LACERATION DURING DELIVERY Status: Acute Current Visit: Yes - Patient Summary/Data Complications: None Consults: None Hospital Course: Jazlyn Crump was admitted for labor with spontaneous rupture membranes.she had spontaneous rupture membranes prior to admission with clear fluid. On admission her cervix was dilated to 5 cm. She was GBS positive and was started on ampicillin for GBS prophylaxis. She received 1 dose prior to delivery. She was given an epidural for anesthesia. She progressed to complete and began pushing. On 01/01/2020 she had a normal vaginal delivery of a live female at 12:22. Apgars of 7 and 9. Weight of 2770 g (6 pounds 1.7 ounces). Her course was uneventful. Her pain was well controlled and she had minimal lochia. She was ambulating, tolerating a regular diet and voiding normally. She was breast-feeding and pumping breastmilk with small amounts of formula supplementation as needed with minimal difficulty. She was afebrile and her hematocrit was 41.9 on admission. She desired to be discharged home on the morning of PPD #2. Her blood type is A+. - Patient Instructions Diet: Regular Diet as Tolerated Activity: Apply Ice, As Tolerated Activity, Other: Nothing in the vagina for 6 weeks Driving: May Drive Today Showering/Bathing: May Shower Notify Provider of: Fever, Increased Pain, Swelling and Redness, Drainage, Nausea and/or Vomiting Other/Special Instructions: Please contact your physician's office if you have heavy vaginal bleeding enough to soak a pad in less than an hour for several hours. Monitor for any signs of an infection in the breasts with severe pain or redness of the breast. - Discharge Plan *PRESCRIPTION DRUG MONITORING PROGRAM REVIEWED*: Not Applicable *COPY OF PRESCRIPTION DRUG MONITORING REPORT IN PATIENT [place]: Not Applicable Home Medications: Home Meds Prenat 115/Iron Fum/Folic/Dss [ 19 Tablet] 1 tab PO DAILY 01/01/20 [ History] Acetaminophen [Tylenol] 650 mg PO Q6H PRN tablet 01/03/20 [Rx] Benzocaine/Menthol [Dermoplast Pain Relief Galax] 1 spray TOP ASDIRECTED PRN canister 01/03/20 [Rx] Docusate Sodium [Colace] 100 mg PO BID PRN cap 01/03/20 [Rx] Hydrocortisone Acetate [Anucort-HC] 25 mg RECTAL BID PRN supp 01/03/20 [Rx] Ibuprofen [Motrin] 600 mg PO Q6H PRN tablet 01/03/20 [Rx] Magnesium Hydroxide [Milk of Magnesia] 30 ml PO BEDTIME PRN cup 01/03/20 [Rx] witch Juliet [Tucks] 1 pad TOP ASDIRECTED PRN pad 01/03/20 [Rx] Patient Handouts: Care of a Perineal Tear, Care After Vaginal Delivery Referrals: Kim Celeste MD [Primary Care Provider] - (Follow-up in 4 to 6 weeks for routine visit or earlier as needed. This appointment may be scheduled with Dr. Ferrari when she has her clinic in [place].) - Discharge Summary/Plan Comment DC Time >30 min.: No - Patient Data Vitals - Most Recent: Last Vital Signs Temp 37.0 C 01/03/20 02:26 Pulse 71 01/03/20 02:26 Resp 15 01/03/20 02:26 BP 111/87 01/03/20 02:26 Pulse Ox 97 01/03/20 02:26 Weight - Most Recent: 83.915 kg I&O - Last 24 hours: Intake & Output 01/02/20 01/03/20 01/03/20 22:59 06:59 14:59 Intake Total 320 Balance 320 Lab Results - Last 24 hrs: Laboratory Results - last 24 hr 01/01/20 Range/Units 09:14 RPR Non-reactive (NONREACTIVE) Med Orders - Current: Current Medications Acetaminophen (Tylenol) 650 mg PO Q6H PRN PRN Reason: mild pain or fever Last Admin: 01/02/20 22:59 Dose: 650 mg Benzocaine/Menthol (Dermoplast Pain Relief Galax) 0 gm TOP ASDIRECTED PRN PRN Reason: Perineal Comfort Measure Last Admin: 01/01/20 14:42 Dose: 1 can Docusate Sodium (Colace) 100 mg PO BID PRN PRN Reason: Constipation Last Admin: 01/02/20 19:36 Dose: 100 mg Hydrocortisone Acetate (Anucort-Hc) 25 mg RECTAL BID PRN PRN Reason: Hemorrhoid pain Oxytocin/Lactated Ringer's (Pitocin In Lr 10 Units/1,000 Ml) 10 unit in 1,000 mls @ 100 mls/hr IV TITRATE WALE; Protocol Ibuprofen (Motrin) 600 mg PO Q6H PRN PRN Reason: Mild pain or fever Last Admin: 01/03/20 07:19 Dose: 600 mg Magnesium Hydroxide (Milk Of Magnesia) 30 ml PO BEDTIME PRN PRN Reason: Constipation Prenat Multivit/[place]/Iron/Folic Ac ( Plus Iron) 1 each PO DAILY WALE Last Admin: 01/02/20 09:19 Dose: 1 each Witch Juliet (Tucks) 1 pad TOP ASDIRECTED PRN PRN Reason: Perineal Comfort Measure Last Admin: 01/02/20 19:36 Dose: 1 jar Discontinued Medications Acetaminophen (Tylenol) 650 mg PO Q6H PRN PRN Reason: Pain (Mild 1-3) and fever Bupivacaine HCl (Sensorcaine-Mpf 0.25%) 10 ml .ROUTE .STK-MED ONE Stop: 01/01/20 14:01 Diphenhydramine HCl (Benadryl) 25 mg IVPUSH Q6H PRN PRN Reason: pruritis Ephedrine Sulfate (Ephedrine Sulfate) 5 mg IVPUSH ASDIRECTED PRN PRN Reason: Hypotension Fentanyl (Sublimaze) Confirm Administered Dose 100 mcg .ROUTE .STK-MED ONE Stop: 01/01/20 09:21 Last Admin: 01/01/20 11:58 Dose: 100 mcg Fentanyl (Sublimaze) 100 mcg EPIDUR Q3H PRN PRN Reason: Pain Fentanyl/Bupivacaine HCl (Fentanyl/Bupivacaine/Ns 2 Mcg-0.125% 100 Ml) 100 ml EPIDUR ASDIRECTED PRN PRN Reason: Pain Last Admin: 01/01/20 09:45 Dose: 100 ml Ampicillin Sodium 2 gm/ Sodium (Chloride) 100 mls @ 200 mls/hr IV ONETIME ONE Stop: 01/01/20 09:31 Last Admin: 01/01/20 09:15 Dose: 200 mls/hr Ampicillin Sodium 1 gm/ Sodium (Chloride) 100 mls @ 200 mls/hr IV Q4H WALE Lactated Ringer's (Ringers, Lactated) 1,000 mls @ 100 mls/hr IV ASDIRECTED WALE Last Admin: 01/01/20 11:58 Dose: 999 mls/hr Oxytocin/Lactated Ringer's (Pitocin In Lr 10 Units/1,000 Ml) 10 unit in 1,000 mls @ 100 mls/hr IV .CONTINUOUS WALE Last Admin: 01/01/20 12:02 Dose: 100 mls/hr Nalbuphine HCl (Nubain) 10 mg IVPUSH Q2H PRN PRN Reason: Pain Sodium Chloride (Saline Flush) 10 ml FLUSH ASDIRECTED PRN PRN Reason: Keep Vein Open
--- NOTE | 2020-01-03 13:33 | PCM48HPAN ---
Post Anesthesia Note - EVALUATION WITHIN 48HRS OF ANESTHETIC Vital Signs in Normal Range: Yes Patient Participated in Evaluation: Yes Respiratory Function Stable: Yes Airway Patent: Yes Cardiovascular Function Stable: Yes Hydration Status Stable: Yes Pain Control Satisfactory: Yes Nausea and Vomiting Control Satisfactory: Yes Mental Status Recovered: Yes Vital Signs: Last Vital Signs Temp 37.0 C 01/03/20 02:26 Pulse 71 01/03/20 02:26 Resp 15 01/03/20 02:26 BP 111/87 01/03/20 02:26 Pulse Ox 97 01/03/20 02:26
== END 2020-01-03 18:25 | disposition home or self-care (01) | DRG 807 ==
LOC: JD.OBCHECK 08:38 → JD.OB 08:40 → JD.OBCHECK 09:02 → OBSVTOIN 12:22 → JD.OB 12:23
PROVIDERS: ADMIT Obstetrics & Gynecology; ATTEND Obstetrics & Gynecology
PROC: 10E0XZZ Delivery of Products of Conception, External Approach (ICD-10-PCS; principal; 2020-01-01)
PROC: 3E0R3BZ Introduction of Anesthetic Agent into Spinal Canal, Percutaneous Approach (ICD-10-PCS; 2020-01-01)
PROC: 00HU33Z Insertion of Infusion Device into Spinal Canal, Percutaneous Approach (ICD-10-PCS; 2020-01-01)
DX: O99.824 Streptococcus B carrier state complicating childbirth (principal); Z37.0 Single live birth; Z3A.39 39 weeks gestation of pregnancy; O70.0 First degree perineal laceration during delivery; O99.52 Diseases of the respiratory system complicating childbirth; J45.909 Unspecified asthma, uncomplicated
CPT/HCPCS: 01967; 36415; 51702; 59025; 59409; 84112; 85025; 86592; A9270-GY; J0290; J2590; J3010; J3490; J7050; J7120